=== PATIENT | male | born 1970 | race Caucasian/White ===

== ENCOUNTER 2022-07-23 14:02 | Outpatient (CLI) | payer BC, SELFPAY ==
[2022-07-23 22:23] LABS: Creatinine Urine 189.4 mg/dL
[2022-07-23 23:15] LABS: Microalbumin Creatinine Ratio 300 mg/g (0-30); Microalbumin Urine > 57 mg/dL
== END 2022-07-23 14:03 | disposition home or self-care (01) ==
LOC: LKVREF 14:04
PROVIDERS: PCP Family Medicine; Visit Provider Family Medicine
DX: D64.9 Anemia, unspecified (principal); E11.319 Type 2 diabetes mellitus with unspecified diabetic retinopathy without macular edema; E11.9 Type 2 diabetes mellitus without complications; I10 Essential (primary) hypertension
CPT/HCPCS: 82043; 82570

== ENCOUNTER 2022-09-04 10:14 | Outpatient (CLI) | payer BC, SELFPAY | END 2022-09-04 10:15 | disposition home or self-care (01) | LOC: OP CLINIC 10:14 | PROVIDERS: PCP Family Medicine; Visit Provider Surgery | DX: D50.9 Iron deficiency anemia, unspecified (principal); K62.1 Rectal polyp; K57.30 Diverticulosis of large intestine without perforation or abscess without bleeding; K44.9 Diaphragmatic hernia without obstruction or gangrene; K31.89 Other diseases of stomach and duodenum | CPT/HCPCS: 43239; 45380; 45385; 88305; 99153; J2250; J3010 ==

== ENCOUNTER 2022-10-26 14:51 | Outpatient (CLI) | payer BC, OTHER, SELFPAY ==
[2022-10-26 22:18] LABS: Iron* 62 ug/dL (49-181)
[2022-10-26 22:19] LABS: Albumin* 3.4 g/dL (3.3-5.0); Chloride* 110 mmol/L (96-114); Potassium* 4.4 mmol/L (3.6-5.1); Sodium* 140 mmol/L (135-149)
[2022-10-26 22:21] LABS: Creatinine* 3.9 mg/dL (0.5-1.5); Estimated Glomerular Filt Rate 17 ml/min
[2022-10-26 22:22] LABS: Cholesterol* 320 mg/dL (90-199)
[2022-10-26 22:22] LABS: Blood Urea Nitrogen* 67 mg/dL (7-30); Carbon Dioxide* 21 mmol/L (20-32); Glucose* 114 mg/dL (60-115); Phosphorus* 5.7 mg/dL (2.5-4.5)
[2022-10-26 22:23] LABS: HDL Cholesterol* 45 mg/dL (>=40); LDL Cholesterol Calculated 210 mg/dL (<100); Triglycerides* 325 mg/dL (40-149)
[2022-10-26 22:27] LABS: Percent Iron Saturation 23 % (20-50); Total Iron Binding Capacity 273 ug/dL (261-462)
[2022-10-26 23:09] LABS: Vitamin B12* 642 pg/mL (243-894)
[2022-10-28 20:52] LABS: Folate, Serum 12.4 ng/mL (>=5.9)
== END 2022-10-26 14:52 | disposition home or self-care (01) ==
PROVIDERS: PCP Family Medicine; Visit Provider Internal Medicine Nephrology
DX: D64.9 Anemia, unspecified (principal); I10 Essential (primary) hypertension; N18.30 Chronic kidney disease, stage 3 unspecified; E11.9 Type 2 diabetes mellitus without complications
CPT/HCPCS: 80061; 80069; 82607; 82728; 82746; 83540; 83550

== ENCOUNTER 2022-12-07 16:21 | Outpatient (CLI) | payer BC, OTHER, SELFPAY | END 2022-12-07 16:22 | disposition home or self-care (01) | PROVIDERS: PCP Family Medicine; Visit Provider Family Medicine | DX: E11.9 Type 2 diabetes mellitus without complications (principal); I10 Essential (primary) hypertension; N18.30 Chronic kidney disease, stage 3 unspecified; D64.9 Anemia, unspecified | CPT/HCPCS: 80048; 82310; 82607; 82668; 82728; 82747; 83970; 84100; 85045 ==

== ENCOUNTER 2023-01-11 15:38 | Outpatient (CLI) | payer BC, SELFPAY ==
--- NOTE | 2023-01-28 13:05 | ONC.NURNOTE ---
Dr. Perla notified of the following via email. [employer] to let office know as well. [facility] denied this for patient, stating the following: This request has been denied.? Your doctor ordered a medicine.? This is to treat your condition (anemia).? We reviewed the chart notes sent in.? Your policy follows expert drug guidelines.? The requested dose is higher than recommended.? This is why this request has been denied.? It is denied as not medically necessary.? It does not meet the standards of your policy.? It is not approved. I will disregard this order and watch for your plan.
== END 2023-01-11 15:39 | disposition home or self-care (01) ==
PROVIDERS: PCP Family Medicine; Visit Provider Family Medicine
DX: Z00.00 Encounter for general adult medical examination without abnormal findings (principal); I10 Essential (primary) hypertension; R93.89 Abnormal findings on diagnostic imaging of other specified body structures; D64.9 Anemia, unspecified; E11.319 Type 2 diabetes mellitus with unspecified diabetic retinopathy without macular edema; N18.30 Chronic kidney disease, stage 3 unspecified
CPT/HCPCS: 80048; 83735; 84100

== ENCOUNTER 2023-04-08 11:00 | Outpatient (RCR) | payer BC, SELFPAY ==
--- NOTE | 2023-02-06 09:50 | PC.NURSE ---
Called pt today as his aranesp is not approved with insurance. Cancelled appointment. Will call pt to schedule after medication is approved.
--- NOTE | 2023-02-07 09:31 | URNOTE ---
Request received for authorization for Minh ([id number]). Prior authorization is approved from 02/07/23 to 02/08/24 by [facility], case# [id number].
--- NOTE | 2023-02-08 09:30 | URNOTE ---
Per Kelly at [employer] ([phone]), it is ok to give 40mcg every 30 days. Call ref #[id number]
[2023-02-08 10:38] LABS: Basophils Absolute Auto 0.04 K/uL (0.00-0.30); Basophils Percent Auto 0.8 % (0.0-3.0); Eosinophils Absolute Auto 0.26 K/uL (0.00-0.50); Hematocrit 28.5 % (37.0-53.0); Hemoglobin* 9.5 gm/dL (13.5-17.5); Immature Granulocytes Abs Auto 0.05 K/uL (0.00-0.30); Lymphocytes Absolute Auto 1.04 K/uL (0.90-2.90); Lymphocytes Percent Auto 20.2 % (20-44); Mean Corpuscular HGB Conc 33 gm/dL (32-36); Mean Corpuscular Hemoglobin 29 pg (26-34); Mean Corpuscular Volume 87 fL (80-100); Monocytes Percent Auto 8.1 % (0.0-11.0); Neutrophils Absolute Auto 3.35 K/uL (1.7-7.0); Neutrophils Percent Auto 64.9 % (42.0-72.0); Platelet Count* 174 K/uL (140-440); RDW Coefficient of Variation % 12.6 % (11.5-15.5); Red Blood Count 3.28 m/uL (4.30-5.90); White Blood Count* 5.16 K/uL (4.50-11.00)
[2023-02-08 10:41] LABS: Slide Review Reflex No
[2023-02-08 10:50] VITALS: BP 162/73; PULSE 66; RESP 16; TEMP 36.4; O2SAT 100
[2023-02-08] MEDS: [UNRECOGNIZED DRUG - REMARK] SUBCUT (11:13)
[2023-03-11 15:50] VITALS: BP 172/81; PULSE 67; RESP 16; TEMP 36.5; O2SAT 98
[2023-03-11] MEDS: [UNRECOGNIZED DRUG - REMARK] SUBCUT (15:57)
[2023-04-08 10:50] VITALS: BP 176/85; PULSE 61; RESP 16; TEMP 36.1; O2SAT 99
[2023-04-08 11:11] LABS: Basophils Absolute Auto 0.02 K/uL (0.00-0.30); Basophils Percent Auto 0.4 % (0.0-3.0); Eosinophils Absolute Auto 0.19 K/uL (0.00-0.50); Eosinophils Percent Auto 3.8 % (0.0-7.0); Hematocrit 30.3 % (37.0-53.0); Hemoglobin* 10.1 gm/dL (13.5-17.5); Immature Granulocytes Abs Auto 0.01 K/uL (0.00-0.30); Immature Granulocytes Pct Auto 0.2 %; Lymphocytes Percent Auto 12.5 % (20-44); Mean Corpuscular HGB Conc 33 gm/dL (32-36); Mean Corpuscular Hemoglobin 29 pg (26-34); Mean Corpuscular Volume 87 fL (80-100); Monocytes Percent Auto 8.2 % (0.0-11.0); Neutrophils Percent Auto 74.9 % (42.0-72.0); Platelet Count* 188 K/uL (140-440); RDW Coefficient of Variation % 13.3 % (11.5-15.5); Red Blood Count 3.49 m/uL (4.30-5.90); Slide Review Reflex No; White Blood Count* 4.97 K/uL (4.50-11.00)
[2023-04-08] MEDS: [UNRECOGNIZED DRUG - REMARK] SUBCUT (11:34)
== END 2023-08-07 23:59 | disposition home or self-care (01) ==
LOC: CCIC 11:00
PROVIDERS: PCP Family Medicine; Referring Provider Family Medicine; Visit Provider Family Medicine
DX: N18.4 Chronic kidney disease, stage 4 (severe) (principal); D64.9 Anemia, unspecified
CPT/HCPCS: 36415; 85025; 96372; J0881

== ENCOUNTER 2023-04-29 14:52 | Outpatient (CLI) | payer BC, SELFPAY | END 2023-04-29 14:53 | disposition home or self-care (01) | LOC: NFLDREF 04-30 08:38 | PROVIDERS: PCP Family Medicine; Referring Provider Family Medicine; Visit Provider Family Medicine | DX: I10 Essential (primary) hypertension (principal); E13.9 Other specified diabetes mellitus without complications; N18.4 Chronic kidney disease, stage 4 (severe); E11.9 Type 2 diabetes mellitus without complications; D64.9 Anemia, unspecified; E78.00 Pure hypercholesterolemia, unspecified | CPT/HCPCS: 80069; 80076; 82728; 83540; 83550; 84550 ==

== ENCOUNTER 2023-07-29 14:50 | Outpatient (CLI) | payer BC, SELFPAY | END 2023-07-29 14:51 | disposition home or self-care (01) | LOC: NFLDREF 08-01 15:32 | PROVIDERS: PCP Family Medicine; Referring Provider Family Medicine; Visit Provider Internal Medicine Nephrology | DX: E11.22 Type 2 diabetes mellitus with diabetic chronic kidney disease (principal); N18.4 Chronic kidney disease, stage 4 (severe); I10 Essential (primary) hypertension; D64.9 Anemia, unspecified | CPT/HCPCS: 80069; 82043; 82570; 82728; 83540; 83550; 84550 ==

== ENCOUNTER 2023-11-01 11:00 | Outpatient (RCR) | payer BC, SELFPAY ==
[2023-05-10 11:12] VITALS: BP 159/89; PULSE 76; RESP 18; TEMP 36.8; O2SAT 100
[2023-05-10 11:47] LABS: Hemoglobin* 9.2 gm/dL (13.5-17.5)
--- NOTE | 2023-05-10 12:08 | ONC.NURNOTE ---
Patient not aware of specific medications that he is taking, he will bring medications with him when he comes.
[2023-05-10] MEDS: [UNRECOGNIZED DRUG - REMARK] SUBCUT (12:26)
[2023-06-07 11:05] LABS: Basophils Absolute Auto 0.03 K/uL (0.00-0.30); Basophils Percent Auto 0.6 % (0.0-3.0); Eosinophils Percent Auto 7.1 % (0.0-7.0); Hematocrit 30.7 % (37.0-53.0); Hemoglobin* 9.9 gm/dL (13.5-17.5); Immature Granulocytes Abs Auto 0.01 K/uL (0.00-0.30); Immature Granulocytes Pct Auto 0.2 %; Mean Corpuscular HGB Conc 32 gm/dL (32-36); Mean Corpuscular Hemoglobin 28 pg (26-34); Mean Corpuscular Volume 88 fL (80-100); Monocytes Percent Auto 7.5 % (0.0-11.0); Neutrophils Absolute Auto 3.53 K/uL (1.7-7.0); Neutrophils Percent Auto 69.6 % (42.0-72.0); Platelet Count* 195 K/uL (140-440); Red Blood Count 3.48 m/uL (4.30-5.90); White Blood Count* 5.07 K/uL (4.50-11.00)
[2023-06-07 11:06] LABS: Slide Review Reflex No
[2023-06-07 11:29] VITALS: BP 183/88; PULSE 66; RESP 18; TEMP 36.6; O2SAT 99
[2023-06-07] MEDS: [UNRECOGNIZED DRUG - REMARK] SUBCUT (12:12)
--- NOTE | 2023-06-07 12:23 | ONC.NURNOTE ---
BP high today. 183/88. Pt states he occasionally checks BP at home and it is elevated at home too. [employer] called and spoke to Dr. Edmond (nephrology alliance consultant), per Dr. Mayito franco to give Aranesp since his BP has always been elevated and this is not something new. She did recommend having pt check his blood pressure at home daily and record BP readings for one week. Pt verbalized understanding of this and will record BP readings daily and bring them to his appt with Dr. Perla on 06/11/23.
[2023-07-05 11:07] LABS: Basophils Absolute Auto 0.05 K/uL (0.00-0.30); Basophils Percent Auto 0.8 % (0.0-3.0); Eosinophils Percent Auto 8.6 % (0.0-7.0); Hematocrit 26.3 % (37.0-53.0); Hemoglobin* 8.8 gm/dL (13.5-17.5); Immature Granulocytes Abs Auto 0.01 K/uL (0.00-0.30); Immature Granulocytes Pct Auto 0.2 %; Lymphocytes Percent Auto 11.2 % (20-44); Mean Corpuscular HGB Conc 34 gm/dL (32-36); Mean Corpuscular Hemoglobin 29 pg (26-34); Mean Corpuscular Volume 86 fL (80-100); Monocytes Percent Auto 6.6 % (0.0-11.0); Neutrophils Percent Auto 72.6 % (42.0-72.0); Platelet Count* 216 K/uL (140-440); RDW Coefficient of Variation % 13.2 % (11.5-15.5); Red Blood Count 3.06 m/uL (4.30-5.90); White Blood Count* 6.06 K/uL (4.50-11.00)
[2023-07-05 11:21] VITALS: BP 167/84; PULSE 79; RESP 16; TEMP 36.4; O2SAT 99
[2023-07-05 11:25] LABS: Slide Review Reflex No
[2023-07-05] MEDS: [UNRECOGNIZED DRUG - REMARK] SUBCUT (11:41)
[2023-08-02 10:21] VITALS: BP 142/72; PULSE 96; RESP 16; TEMP 36.6; O2SAT 99
[2023-08-02] MEDS: [UNRECOGNIZED DRUG - REMARK] SUBCUT (10:45)
--- NOTE | 2023-09-04 14:29 | URNOTE ---
Request received for authorization forJuancarlos ([id number]). Prior authorization is approved per [facility] Rep. Katherine Wilkinson approved for 12 doses date range: 08/30/23 to 08/30/24.
[2023-09-05 11:08] LABS: Basophils Absolute Auto 0.03 K/uL (0.00-0.30); Basophils Percent Auto 0.5 % (0.0-3.0); Eosinophils Absolute Auto 0.21 K/uL (0.00-0.50); Eosinophils Percent Auto 3.7 % (0.0-7.0); Hematocrit 27.3 % (37.0-53.0); Hemoglobin* 8.9 gm/dL (13.5-17.5); Lymphocytes Percent Auto 19.1 % (20-44); Mean Corpuscular HGB Conc 33 gm/dL (32-36); Mean Corpuscular Hemoglobin 29 pg (26-34); Mean Corpuscular Volume 88 fL (80-100); Monocytes Percent Auto 7.2 % (0.0-11.0); Neutrophils Absolute Auto 3.98 K/uL (1.7-7.0); Neutrophils Percent Auto 69.5 % (42.0-72.0); Platelet Count* 194 K/uL (140-440); RDW Coefficient of Variation % 13.7 % (11.5-15.5); Red Blood Count 3.12 m/uL (4.30-5.90); White Blood Count* 5.72 K/uL (4.50-11.00)
[2023-09-05 11:21] LABS: Slide Review Reflex No
[2023-09-05] MEDS: DARBEPOETIN ALFA (NON DIALYSIS) 100 MCG SUBCUT (12:15)
[2023-10-04 11:05] LABS: Basophils Absolute Auto 0.03 K/uL (0.00-0.30); Basophils Percent Auto 0.6 % (0.0-3.0); Eosinophils Absolute Auto 0.24 K/uL (0.00-0.50); Eosinophils Percent Auto 4.4 % (0.0-7.0); Hematocrit 27.5 % (37.0-53.0); Hemoglobin* 9.2 gm/dL (13.5-17.5); Lymphocytes Percent Auto 17.4 % (20-44); Mean Corpuscular HGB Conc 34 gm/dL (32-36); Mean Corpuscular Hemoglobin 29 pg (26-34); Mean Corpuscular Volume 87 fL (80-100); Monocytes Percent Auto 8.1 % (0.0-11.0); Neutrophils Absolute Auto 3.75 K/uL (1.7-7.0); Neutrophils Percent Auto 69.5 % (42.0-72.0); Platelet Count* 196 K/uL (140-440); RDW Coefficient of Variation % 13.7 % (11.5-15.5); Red Blood Count 3.18 m/uL (4.30-5.90)
[2023-10-04 11:13] LABS: Slide Review Reflex No
[2023-10-04 11:25] VITALS: BP 136/67; PULSE 85; RESP 16; TEMP 36.3; O2SAT 99
[2023-10-04] MEDS: DARBEPOETIN ALFA (NON DIALYSIS) 100 MCG SUBCUT (11:46)
[2023-11-01 10:52] VITALS: BP 154/78; PULSE 83; RESP 16; TEMP 36.2; O2SAT 98
[2023-11-01] MEDS: DARBEPOETIN ALFA (NON DIALYSIS) 100 MCG SUBCUT (10:58)
== END 2023-11-06 23:59 | disposition home or self-care (01) ==
LOC: CCIC 11:00
PROVIDERS: Internal Medicine Nephrology; PCP Family Medicine; Referring Provider Family Medicine; Visit Provider Family Medicine
DX: N18.4 Chronic kidney disease, stage 4 (severe) (principal); D64.9 Anemia, unspecified
CPT/HCPCS: 36415; 85018; 85025; 96372; J0881

== ENCOUNTER 2024-04-03 10:00 | Outpatient (RCR) | payer BC, SELFPAY ==
[2023-11-29 11:00] VITALS: BP 163/83; PULSE 82; RESP 18; TEMP 36.6; O2SAT 97
[2023-11-29 11:14] LABS: Basophils Absolute Auto 0.04 K/uL (0.00-0.30); Basophils Percent Auto 0.8 % (0.0-3.0); Eosinophils Absolute Auto 0.32 K/uL (0.00-0.50); Hematocrit 30.4 % (37.0-53.0); Immature Granulocytes Abs Auto 0.01 K/uL (0.00-0.30); Immature Granulocytes Pct Auto 0.2 %; Lymphocytes Percent Auto 13.6 % (20-44); Mean Corpuscular HGB Conc 33 gm/dL (32-36); Mean Corpuscular Hemoglobin 28 pg (26-34); Mean Corpuscular Volume 85 fL (80-100); Monocytes Percent Auto 5.5 % (0.0-11.0); Neutrophils Percent Auto 73.9 % (42.0-72.0); Platelet Count* 189 K/uL (140-440); Red Blood Count 3.57 m/uL (4.30-5.90); White Blood Count* 5.31 K/uL (4.50-11.00)
[2023-11-29 11:16] LABS: Slide Review Reflex No
[2023-11-29] MEDS: DARBEPOETIN ALFA (NON DIALYSIS) 100 MCG SUBCUT (11:31)
[2023-12-27 10:32] VITALS: BP 147/77; PULSE 85; RESP 16; TEMP 36.7; O2SAT 98
[2023-12-27 11:19] LABS: Basophils Absolute Auto 0.03 K/uL (0.00-0.30); Basophils Percent Auto 0.5 % (0.0-3.0); Eosinophils Percent Auto 5.4 % (0.0-7.0); Hematocrit 28.2 % (37.0-53.0); Hemoglobin* 9.4 gm/dL (13.5-17.5); Immature Granulocytes Abs Auto 0.01 K/uL (0.00-0.30); Immature Granulocytes Pct Auto 0.2 %; Lymphocytes Absolute Auto 1.15 K/uL (0.90-2.90); Lymphocytes Percent Auto 20.6 % (20-44); Mean Corpuscular HGB Conc 33 gm/dL (32-36); Mean Corpuscular Hemoglobin 28 pg (26-34); Mean Corpuscular Volume 85 fL (80-100); Monocytes Percent Auto 9.1 % (0.0-11.0); Neutrophils Absolute Auto 3.59 K/uL (1.7-7.0); Neutrophils Percent Auto 64.2 % (42.0-72.0); Platelet Count* 262 K/uL (140-440); RDW Coefficient of Variation % 13.9 % (11.5-15.5); Red Blood Count 3.31 m/uL (4.30-5.90); White Blood Count* 5.59 K/uL (4.50-11.00)
[2023-12-27 11:21] LABS: Slide Review Reflex No
[2023-12-27] MEDS: DARBEPOETIN ALFA (NON DIALYSIS) 100 MCG SUBCUT (11:50)
--- NOTE | 2024-01-24 15:52 | ONC.NURNOTE ---
Pt did not show up for appt, left message for pt to call and reschedule.
[2024-01-27 11:00] VITALS: BP 223/103; PULSE 74; RESP 16; O2SAT 100
[2024-01-27 11:11] LABS: Basophils Absolute Auto 0.04 K/uL (0.00-0.30); Basophils Percent Auto 0.7 % (0.0-3.0); Eosinophils Absolute Auto 0.24 K/uL (0.00-0.50); Eosinophils Percent Auto 4.1 % (0.0-7.0); Hematocrit 31.2 % (37.0-53.0); Hemoglobin* 10.1 gm/dL (13.5-17.5); Immature Granulocytes Abs Auto 0.01 K/uL (0.00-0.30); Immature Granulocytes Pct Auto 0.2 %; Lymphocytes Percent Auto 17.1 % (20-44); Mean Corpuscular HGB Conc 32 gm/dL (32-36); Mean Corpuscular Hemoglobin 28 pg (26-34); Mean Corpuscular Volume 86 fL (80-100); Monocytes Percent Auto 5.9 % (0.0-11.0); Neutrophils Absolute Auto 4.18 K/uL (1.7-7.0); Platelet Count* 181 K/uL (140-440); RDW Coefficient of Variation % 14.4 % (11.5-15.5); Red Blood Count 3.61 m/uL (4.30-5.90)
[2024-01-27 11:12] LABS: Slide Review Reflex No
[2024-01-27 11:20] VITALS: BP 217/102
[2024-01-27] MEDS: ISOSORBIDE MONONITRATE ER 30 MG TAB 60 MG PO (11:32)
[2024-01-27 12:35] VITALS: BP 224/112
[2024-01-27 12:38] VITALS: BP 218/102
--- NOTE | 2024-01-27 12:39 | PC.NURSE ---
Addendum entered by Teri Minaya RN 01/27/24 12:47: Spoke with Dr. Perla's nurse and updated her on pt' BP situation from today. She will discuss with . Again, pt was also instructed to call and report his elevated BP. Original Note: Pt present at [facility] for labs and aranesp injection. Pt BP upon arrival was significantly elevated. See Vitals Worklist for details. Per pt report he is out of his Imdur but has taken his other BP meds (hydralazine, amlodipine, HCTZ). RN discussed case with Leeanne Badillo APRN. Gave pt an oral dose of Imdur from our pharmacy. Pt returned to [facility] 1 hour later and BP continues to be very high (210-220/110-120). Pt has no symptoms at this time. Hieu will picker packer his prescription of Imdur tomorrow. Hieu was instructed to call Dr. Perla with this update so BP can be monitored and meds can be adjusted if needed. Aranesp HELD today. Pt will return next week for an injection if BP better controlled.
[2024-01-31 11:00] VITALS: BP 178/92; PULSE 79; RESP 16; TEMP 36.3; O2SAT 98
[2024-01-31] MEDS: DARBEPOETIN ALFA (NON DIALYSIS) 100 MCG SUBCUT (11:27)
--- NOTE | 2024-01-31 11:59 | PC.NURSE ---
Pt present at [facility] today for BP re-check and possible Aranesp injection. BP still elevated 170-180/90's. Leeanne Badillo APRN emailed Dr. Perla for treatment parameters. advised OK to give Aranesp if SBP <200. Dose given today. Spoke with Dr. Perla's RN re: BP management. She will work with Dr. Perla and call pt directly to discuss changes to meds.
[2024-02-28 09:16] LABS: Basophils Absolute Auto 0.04 K/uL (0.00-0.30); Basophils Percent Auto 0.5 % (0.0-3.0); Eosinophils Absolute Auto 0.33 K/uL (0.00-0.50); Eosinophils Percent Auto 4.4 % (0.0-7.0); Hematocrit 30.3 % (37.0-53.0); Hemoglobin* 9.8 gm/dL (13.5-17.5); Immature Granulocytes Abs Auto 0.01 K/uL (0.00-0.30); Immature Granulocytes Pct Auto 0.1 %; Lymphocytes Percent Auto 17.1 % (20-44); Mean Corpuscular HGB Conc 32 gm/dL (32-36); Mean Corpuscular Hemoglobin 28 pg (26-34); Mean Corpuscular Volume 88 fL (80-100); Monocytes Percent Auto 5.9 % (0.0-11.0); Neutrophils Absolute Auto 5.34 K/uL (1.7-7.0); Platelet Count* 186 K/uL (140-440); RDW Coefficient of Variation % 14.6 % (11.5-15.5); Red Blood Count 3.45 m/uL (4.30-5.90); White Blood Count* 7.43 K/uL (4.50-11.00)
[2024-02-28 09:20] LABS: Slide Review Reflex No
[2024-02-28 09:30] VITALS: BP 147/76; PULSE 67; RESP 14; TEMP 36.6; O2SAT 98
[2024-02-28] MEDS: DARBEPOETIN ALFA (NON DIALYSIS) 100 MCG SUBCUT (09:33)
--- NOTE | 2024-04-03 11:44 | ONC.NURNOTE ---
Patient states he now gets it at Dialysis so no further need to come in
== END 2024-05-27 23:59 | disposition home or self-care (01) ==
LOC: CCIC 10:00
PROVIDERS: PCP Family Medicine; Referring Provider Family Medicine; Visit Provider Clinical Nurse Specialist
DX: N18.4 Chronic kidney disease, stage 4 (severe) (principal); D63.1 Anemia in chronic kidney disease
CPT/HCPCS: 36415; 85025; 96372; 99211; A9270; J0881; J1642

== ENCOUNTER 2024-09-14 10:09 | Outpatient (CLI) | payer MEDICARE, SELFPAY ==
--- OUTSIDE RECORDS SUMMARY | 2024-09-14 10:20 | XMS_ITS ---
Author Organization [facility] Address [address] [place] [address] Care Team Providers Care Press Hand Supervisor Name Role Phone Unavailable Unavailable Unavailable Surgery Details Not on file Complications Check Surgery Details section. Procedure Estimated Blood Loss Check Surgery Details section. Procedure Findings Check Surgery Details section. Procedure Specimens Taken Check Surgery Details section.
--- OUTSIDE RECORDS SUMMARY | 2024-09-14 10:20 | XMS_ITS | Referral Summary ---
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 For routine questions regarding patient records, call [phone] during business hours, M-F 8:00 AM - 5:00 PM Central Time. Record requests for emergency care only can be directed to [phone] at any time.[facility] Encounters Date Type Department Care Team Description 08/26/2024 1:19 PM GROUP EXERCISE CLASS INSTRUCTOR - 08/26/2024 11:59 PM GROUP EXERCISE CLASS INSTRUCTOR Hospital Encounter Department of Laboratory Medicine and Pathology, [facility], in [place], [place] [address] [place] [address] Jovani Willis APRN, C.N.P., M.S.N. Chronic Kidney Disease; Pretransplant Recipient Evaluation Exam Discharge Disposition: Home or Self Care 08/24/2024 [facility] [place], [place] [address] [place] [address] Jovani Willis APRN, C.N.P., M.S.N. Chronic Kidney Disease; Pretransplant Recipient Evaluation Exam 08/04/2024 Orders Only Division of Nephrology and Hypertension in [place], [place] [address] [place] [phone] Mahesh Perla Jr., D.O. 06/26/2024 2:53 PM CDT - 06/26/2024 11:59 PM CDT Hospital Encounter Department of Laboratory Medicine and Pathology, [facility], in [place], [place] [address] [place] [address] Jovani Willis APRN, C.N.P., M.S.N. Chronic Kidney Disease; Pretransplant Recipient Evaluation Exam Discharge Disposition: Home or Self Care 06/26/2024 Orders Only Lamonte [facility] in [place], [place] [address] [place] [address] Jovani Willis APRN, C.N.P., M.S.N. Chronic Kidney Disease; Pretransplant Recipient Evaluation Exam from Last 3 Months Allergies No known active allergies Medications * This document contains information received from the source organization and may not represent a complete record from that organization. acetaminophen (for_TYLENOL) 100 mg/mL solution Take by mouth as needed. [address] Active aspirin [address] tablet Take 1 tablet by mouth daily. 5 Active UNABLE TO FIND 4 (four) times a day. 5 Active lancets misc 4 (four) times a day. 5 Active lancets misc 2 (two) times a day. 6 Active blood sugar diagnostic stripsIndication s:Diabetes Mellitus Type 2 (HCC) 3 test daily. 270 test 3 8 Active blood-glucose meter miscIndications: Diabetes Mellitus Type 2 (HCC) Test as directed for diabetes control. 1 each 8 Active blood glucose ctl high,nml,low solutionIndicati ons:Diabetes Mellitus Type 2 (HCC) Glucose control solution provides an easy way to ensure accurate blood glucose testing. 1 each 8 Active insulin glargine (Lantus Solostar U-100 Insulin) 100 unit/mL (3 mL) injection INJECT 22 UNITS UNDER THE SKIN AT BEDTIME FOR 2 DAYS , THEN 24 UNITS FOR 2 DAYS , THEN 26 UNITS AT BEDTIME 15 mL 1 0 Active Additional Information Patient taking differently: Taking 25 UNITS AT BEDTIME Not taking due to cost, Informant: Self, Reported on 04/16/2024 BD Ultra-Fine Mini Pen Needle 31 gauge x 3/16 needle USE TO INJECT INSULIN SIX TIMES PER DAY 600 each 3 0 Active hydroCHLOROthiaz allan (HYDRODIURIL) 25 mg tablet Take 1 tablet (25 mg total) by mouth daily. 90 tablet 3 2 Active Additional Information Patient taking differently:25 mg oral Daily,At noon, Reported on 12/11/2023 isosorbide mononitrate (IMDUR) 60 mg 24 hr tablet Take 1 tablet (60 mg total) by mouth daily. 90 tablet 3 3 09/15/20 24 Active atorvastatin (LIPITOR) 10 mg tablet Take 1 tablet (10 mg total) by mouth daily. 90 tablet 3 4 02/04/20 25 Active metoprolol succinate (TOPROL-XL) 50 mg 24 hr tablet Take 1 tablet (50 mg total) by mouth daily. Do not crush or chew. 90 tablet 3 4 02/04/20 25 Active amLODIPine (NORVASC) 10 mg tablet Take 1 tablet (10 mg total) by mouth daily. 90 tablet 3 4 02/11/20 25 Active gentamicin (GARAMYCIN) 0.1 % cream APPLY ONCE DAILY TO PD EXIT SITE 4 Active Janet-Gene Rx 1-60-300 mg-mg-mcg tablet Take 1 tablet by mouth daily. 4 Active insulin detemir U-100 (Levemir U-100 Insulin) 100 unit/mL injection Inject 25 Units under the skin at bedtime. Injected daily as directed. 22.5 mL 1 4 04/20/20 25 Active sevelamer carbonate (Renvela) 800 mg tablet Take 2 tablets (1,600 mg total) by mouth 3 (three) times a day with meals. 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 08/14/2022 Anemia Of Chronic Renal Disease 12/05/2021 Hyperparathyroidism Renal Secondary 10/17/2021 Proteinuria 05/24/2020 Chronic Kidney Disease Stage 5 Glomerular Filtration Rate Less Than 15 05/24/2020 Hypertensive Chronic Kidney Disease With Stage 5 Chronic Kidney Disease Or End Stage Renal Disease 05/24/2020 Elevated Blood Pressure 12/19/2018 Goiter 12/19/2018 Pain Right Upper Quadrant 04/08/2018 Hyperlipidemia 08/04/2010 Diabetes Mellitus Type 2 07/28/2010 Overview (02/26/2017): Diabetes mellitus without mention of complication, type II or unspecified type, uncontrolled Resolved Problems Problem Noted Date Diagnosed Date Resolved Date Anemia 05/27/2018 12/19/2018 Gallstone Without Obstruction 04/18/2018 12/19/2018 Immunizations Name Administration Dates Next Due Influenza, Injectable, Quadrivalent 08/26/2015 Influenza, Seasonal, Injectable 10/13/2012 Influenza, Unspecified 08/26/2015,2013,08/28/2013,2012,08/10/2011,07/03/2010,08/19/2007 PPSV23 02/09/2011,05/14/2005 RZV (SHINGRIX) 12/30/2023,04/22/2020 Td Preservative Free (TENIVA C, DECAVAC) 04/27/2005 Tdap 11/19/2022,01/16/2013 influenza trivalent vaccine (6 months and older)(PF) 07/27/2008 influenza vaccine quad (FLUZONE/FLUARIX) (6 months and older)(PF) 07/23/2022 Social History Tobacco Use Types Packs/Day Years Used Date Smoking Tobacco: Never Passive Smoke Exposure: Never Smokeless Tobacco: Never Tobacco Cessation:Counseling Given: Not Answered Alcohol Use Standard Drinks/Week Comments Not Currently 13 (1 standard drink = 0.6 oz pure alcohol) one some days, 6 on weekends [facility] Utilities Answer Date Recorded In the past 12 months has th e [employer], gas, oil, or water [email or web address] threatened to shut off services in your home? Yes 04/16/2024 PHQ-2 Answer Date Recorded PHQ-2 Score 1 04/16/2024 Exercise Vital Sign Answer Date Recorde d On average, how many days pe r week do you engage in moderate to strenuous exercise (like a brisk walk)? Patient declined On average, how many minutes do you engage in exercise at this level? Patient declined 04/16/2024 Hunger Vital Sign Answer Date Recorded Within the past 12 months, y ou worried that your food would run out before you got the money to buy more. Sometimes true Within the past 12 months, t he food you bought just didn't last and you didn't have money to get more. Sometimes true 08/2024 PRAPARE - Transportation Answer Date Re corded In the past 12 months, has l ack of transportation kept you from medical appointments or from getting medications? No 04/06 In the past 12 months, has l ack of transportation kept you from meetings, work, or from getting things needed for daily living? No 04/16/2024 Nutrition Answer Date Recorded On average, how many serving s of fruits and vegetables do you eat per day (serving size is equal to 1 cup or approximately the size of a tennis ball)? 0-2 04/16/2024 Dental Answer Date Recorded Dental: Regular Dentist Yes 04/16/20 Employment Answer Date Recorded Employment status Temporarily disabled Housing Stability Answer Date Recorded What is your living situation today? 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 Not on file Not on file Not on file Last Filed Vital Signs Vital Sign Reading Time Taken Comments Blood Pressure 137/75 04/16/2024 1:37 PM CDT Pulse 63 04/16/2024 1:37 PM CDT Temperature 36.7 C (98.1 F) 04/16/2024 1:37 PM CDT Respiratory Rate 11 02/13/2024 2:00 PM CDT Oxygen Saturation 98% 02/13/2024 2:00 PM CDT Inhaled Oxygen Concentration - - Weight 67.4 kg (148 lb 9.4 oz) 05/28/2024 9:26 A M CDT Height 155.4 cm (5' 1.18) 05/28/2024 9:26 AM CD T Body Mass Index 27.91 05/28/2024 9:26 AM CDT Plan of Treatment Not on file Procedures Procedure Name Priority Date/Time Associated Diagnosis Comments HLA CLASS I SAB ANTIBODY SCREEN Routine 09/09/2024 1:30 PM GROUP EXERCISE CLASS INSTRUCTOR Chronic Kidney Disease Pretransplant Recipient Evaluation Exam HLA CLASS I/II COMBINED CPRA, SERUM Routine 07/22/2024 11:00 AM CDT HLA CLASS II SAB ANTIBODY SCREEN Routine 07/22/2024 11:00 AM CDT Chronic Kidney Disease Pretransplant Recipient Evaluation Exam HLA CLASS I SAB ANTIBODY SCREEN Routine 07/22/2024 11:00 AM CDT Chronic Kidney Disease Pretransplant Recipient Evaluation Exam HEMOGLOBIN A1C, B Routine 04/16/2024 2:4 8 PM CDT Diabetes Mellitus Type 2 With 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 (HCC) BASIC METABOLIC PANEL, S/P Routine 04/16/2024 2:48 PM CDT Diabetes Mellitus Type 2 With 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 (HCC) ALBUMIN, RANDOM, U Routine 12/09/2023 7: 22 AM GROUP EXERCISE CLASS INSTRUCTOR Chronic Kidney Disease Stage 4 Glomerular Filtration Rate 15-29 (HCC) Hypertension And Chronic Kidney Disease Stage 4 (HCC) Diabetes Mellitus Type 2 (HCC) Hyperparathyroidism Renal Secondary (HCC) Anemia Of Chronic Renal Disease LIPID PANEL, S Routine 12/09/2023 7:08 AM GROUP EXERCISE CLASS INSTRUCTOR Diabetes Mellitus Type 2 (HCC) Chronic Kidney Disease Stage 5 Glomerular Filtration Rate Less Than 15 (HCC) Pretransplant Recipient Evaluation Exam HIV-1/-2 AG AND AB SCREEN, PLASMA Routine 12/09/2023 7:07 AM GROUP EXERCISE CLASS INSTRUCTOR Diabetes Mellitus Type 2 (HCC) Chronic Kidney Disease Stage 5 Glomerular Filtration Rate Less Than 15 (HCC) Pretransplant Recipient Evaluation Exam COLOGUARD Routine 11/18/2023 10:53 AM GROUP EXERCISE CLASS INSTRUCTOR Diabetes Mellitus Type 2 (HCC) Chronic Kidney Disease Stage 5 Glomerular Filtration Rate Less Than 15 (HCC) Pretransplant Recipient Evaluation Exam from Last 3 Months or Most Recently Relevant to Health Maintenance Results * HLA Class I SAB Antibody Screen (09/09/2024 1:30 PM GROUP EXERCISE CLASS INSTRUCTOR) Only the most recent of2 resultswithin the time period is included. Class I SAB Overall Result Negative Not Applicable 09/14/2024 10:11 AM GROUP EXERCISE CLASS INSTRUCTOR DBB8 Class I SAB >=5000 MFI NONE 09/14/2024 10:11 AM GROUP EXERCISE CLASS INSTRUCTOR DBB8 Class I SAB [id number] MFI NONE 09/14/2024 10:11 AM GROUP EXERCISE CLASS INSTRUCTOR DBB8 Class I SAB 500-1999 MFI NONE 09/14/2024 10:11 AM GROUP EXERCISE CLASS INSTRUCTOR DBB8 SAB A Specificity NONE 09/14/2024 10:11 AM GROUP EXERCISE CLASS INSTRUCTOR DBB8 SAB B Specificity NONE 09/14/2024 10:11 AM GROUP EXERCISE CLASS INSTRUCTOR DBB8 SAB C Specificity NONE 09/14/2024 10:11 AM GROUP EXERCISE CLASS INSTRUCTOR DBB8 Comment: ----ADDITIONAL INFORMATION---- Method: Luminex Flow Cytometry CLIA: [id number] CLIA [employer] Driver: PROSPER NELSON,Ph.D. Blood (Blood, Venous) 09/09/2024 1:30 PM GROUP EXERCISE CLASS INSTRUCTOR 09/10/2024 11:43 AM GROUP EXERCISE CLASS INSTRUCTOR Jovani Willis APRN, C.N.P., M.S.N. LAB HLA ORD ERABLES Final Result [facility] [address] [place] [address], [facility] DBB8 [facility] [address] [place] [address] * HLA Class I/II Combined cPRA, Serum (07/22/2024 11:00 AM CDT) Class I/II Combined cPRA 0 Not Applicable 07/27/2024 9:28 AM CDT DBB8 Comment: ----ADDITIONAL INFORMATION---- Calculated PRA (cPRA) is the percentage of donors expected to have HLA antigens listed as unacceptable for a candidate on the waiting list. Unacceptable antigens include serologic equivalents that have a normalized Mean Fluorescence Intensity (MFI) >= 2000 and antigens that demonstrate Prozone Phenomenon. The cPRA is calculated based on the HLA frequencies published by UNOS/OPTN listed here: http://optn.transplant.[facility].gov CLIA: [id number] CLIA [employer] Driver: PROSPER NELSON,Ph.D. Combined cPRA Specificities NONE 07/27/2024 9:28 AM CDT DBB8 Blood 07/22/2024 11:0 0 AM CDT 07/23/2024 12:52 PM CDT Jovani Willis APRN C.N.P., M.S.N. LAB HLA ORD ERABLES Final Result [facility] [address] [place] [address], [facility] DBB8 [facility] [address] [place] [address] * HLA Class II SAB Antibody Screen (07/22/2024 11:00 AM CDT) [facility] Class II SAB Overall Result Positive Not Applicable 07/26/2024 7:54 PM CDT DBB8 Comment: A portion of the testing process was performed at [facility] site [id number] Class II SAB >=5000 MFI NONE 07/26/2024 7:54 PM CDT DBB8 Class II SAB [id number] MFI NONE 07/26/2024 7:54 PM CDT DBB8 Class II SAB 500-1999 MFI see below 07/26/2024 7:54 PM CDT DBB8 Comment: DRw:53 DP:1 14 SAB DRB1 Specificity NONE 07/26/2024 7:54 PM CDT DBB8 SAB [id number] Specificity see below 07/26/2024 7:54 PM CDT DBB8 Comment: 53(01:01)[853], 53(01:03)[641] Format: Serologic Eq.([id number] Mol. Allele)[Normalized MFI] NOTE: Data is displayed in descending order by Mean Fluorescence Intensity (MFI). Serologic equivalents can be displayed multiple times for different molecular alleles. SAB DQB1 Specificity NONE 07/26/2024 7:54 PM CDT DBB8 SAB DPB1 Specificity see below 07/26/2024 7:54 PM CDT DBB8 Comment: 1(A*02:01;B*01:01)[2175], 14(A*02:01;B*14:01)[1786] Format: Serologic Eq.(DPA1;DPB1 Mol. Allele)[Normalized MFI] NOTE: Data is displayed in descending order by Mean Fluorescence Intensity (MFI). Serologic equivalents can be displayed multiple times for different molecular alleles. ----ADDITIONAL INFORMATION---- Method: Luminex Flow Cytometry CLIA: [id number] CLIA [employer] Driver: PROSPER NELSON,Ph.D. Blood (Blood, Venous) 07/22/2024 11:00 AM CDT 07/23/2024 12:52 PM CDT us Pedro Luis Vincent APRNN.P., M.S.N. LAB HLA ORD ERABLES Final Result [facility] [address] [place] [address], [facility] DBB8 [facility] [address] [place] [address] * (ABNORMAL) Hemoglobin A1c (04/16/2024 2:48 PM CDT) Hemoglobin A1c, B 6.0(H) 4.2 - 5.6 % 04/16/2024 5:20 PM CDT OWAT Comment: Hemoglobin A1c values of 5.7-6.4 percent indicate an increased risk for developing diabetes mellitus. In diabetic patients, HbA1c goals should be discussed with healthcare provider. Blood (Blood, Venous) 04/16/2024 2:48 PM CDT 04/16/2024 5:07 PM CDT us Kathy KwokC. LAB BLOOD ADD-ON Final Res ult [facility] [address] [place] [address], [place] OWAT [facility] [place] [address] [place] [address] * (ABNORMAL) Basic Metabolic Panel (04/16/2024 2:48 PM CDT) Potassium, P 3.8 3.6 - 5.2 mmol/L 04/16/2024 5:25 PM CDT OWAT Sodium, P 143 135 - 145 mmol/L 04/16/2024 5:25 PM CDT OWAT Chloride, P 103 98 - 107 mmol/L 04/16/2024 5:25 PM CDT OWAT Bicarbonate, P 25 22 - 29 mmol/L 04/16/2024 5:25 PM CDT OWAT Anion Gap, P 15 7 - 15 04/16/2024 5:25 PM CDT OWAT BUN (Blood Urea Nitrogen), P 59(H) 8 - 24 mg/dL 04/16/2024 5:25 PM CDT OWAT Creatinine 7.63(H) 0.74 - 1.35 mg/dL 04/16/2024 5:25 PM CDT OWAT Estimated GFR (eGFR) <15(L) >=60 mL/min/BSA 04/16/2024 5:25 PM CDT OWAT Comment: Estimated GFR calculated using the 2020 CKD_EPI creatinine equation. Calcium, Total, P 7.7(L) 8.6 - 10.0 mg/dL 04/16/2024 5:25 PM CDT OWAT Glucose, P 275(H) 70 - 140 mg/dL 04/16/2024 5:25 PM CDT OWAT Blood (Blood, Venous) 04/16/2024 2:48 PM CDT 04/16/2024 5:11 PM CDT us Kathy KwokC. LAB BLOOD ADD-ON Final Res ult [facility] [address] [place] [address], [place] OW[place] [facility] [place] [address] [place] [address] * (ABNORMAL) Albumin, Random, Urine (12/09/2023 7:22 AM GROUP EXERCISE CLASS INSTRUCTOR) Albumin, Random, U 4461.5 mg/L 2023 10:30 AM GROUP EXERCISE CLASS INSTRUCTOR DTL Comment: ----ADDITIONAL INFORMATION---- This test has been modified from the emt dispatcher's instructions. Its performance characteristics were determined by [facility] in a manner consistent with CLIA requirements. This test has not been cleared or approved by the U.S. Food and Drug Administration. Creatinine 125 mg/dL 12/09/2023 8:34 AM GROUP EXERCISE CLASS INSTRUCTOR DTL Albumin/Creatinine Ratio 3569(H) <17 mg/g 12/09/2023 10:30 AM GROUP EXERCISE CLASS INSTRUCTOR DTL Urine (Urine, Voided) 12/09/2023 7:22 AM GROUP EXERCISE CLASS INSTRUCTOR 12/09/2023 8:04 AM GROUP EXERCISE CLASS INSTRUCTOR us Mahesh Perla Jr., D.O. LAB URINE ORDERABLES Final Result [facility] [address] [place] [address], [facility] [address] [place] [address] * (ABNORMAL) Lipid Panel (12/09/2023 7:08 AM GROUP EXERCISE CLASS INSTRUCTOR) Triglycerides 303(H) mg/dL 12/09/2023 8:27 AM GROUP EXERCISE CLASS INSTRUCTOR DTL Comment: ----REFERENCE VALUE---- Normal: <150 mg/dL Borderline High: 150-199 mg/dL High: 200-499 mg/dL Very High: > or =500 mg/dL Cholesterol, Total 319(H) mg/dL 2023 8:27 AM GROUP EXERCISE CLASS INSTRUCTOR DTL Comment: ----REFERENCE VALUE---- Desirable: < 200 mg/dL Borderline High: 200 - 239 mg/dL High: > or = 240 mg/dL Cholesterol, LDL, Calculated 218(H) mg/dL 12/09/2023 8:27 AM GROUP EXERCISE CLASS INSTRUCTOR DTL Comment: The markedly elevated LDL level is suggestive of a genetic condition such as familial hypercholesterolemia (FH) or familial defective apolipoprotein B-100 (FDB). Molecular genetic testing for FH and FDB is available through [facility]. ----REFERENCE VALUE---- Desirable: <100 mg/dL Above Desirable: 100-129 mg/dL Borderline High: 130-159 mg/dL High: 160-189 mg/dL Very High: >=190 mg/dL ----ADDITIONAL INFORMATION---- LDL cholesterol calculated using the Corona/NIH equation. Cholesterol, HDL, S 38(L) >=40 mg/dL 12/09/2023 8:27 AM GROUP EXERCISE CLASS INSTRUCTOR DTL Cholesterol, Non-HDL, Calculated 281(H) mg/dL 12/09/2023 8:27 AM GROUP EXERCISE CLASS INSTRUCTOR DTL Comment: ----REFERENCE VALUE---- Desirable: <130 mg/dL Above Desirable: 130-159 mg/dL Borderline High: 160-189 mg/dL High: 190-219 mg/dL Very High: > or =220 mg/dL Fasting (8 HR or more) Yes 12/09/2023 7:47 AM GROUP EXERCISE CLASS INSTRUCTOR DTL Blood (Blood, Venous) 12/09/2023 7:08 AM GROUP EXERCISE CLASS INSTRUCTOR 12/09/2023 7:47 AM GROUP EXERCISE CLASS INSTRUCTOR us Jackson Cade M.D. LAB BLOOD ADD-ON Final Resul t [facility] [address] [place] [address], [facility] [address] [place] [address] * HIV-1/-2 Ag and Ab Screen, Plasma (12/09/2023 7:07 AM GROUP EXERCISE CLASS INSTRUCTOR) [facility] HIV-1/-2 Ag and Ab Screen, P Negative Negative 12/09/2023 11:36 AM GROUP EXERCISE CLASS INSTRUCTOR [facility] Comment: Negative result does not rule out HIV infection. If exposure to HIV infection occurred <14 days ago, contact the laboratory to request addition of HIV-1/HIV-2 RNA detection, Plasma (HIP12). Blood (Blood, Venous) 12/09/2023 7:07 AM GROUP EXERCISE CLASS INSTRUCTOR 12/09/2023 10:42 AM GROUP EXERCISE CLASS INSTRUCTOR us Jackson Cade M.D. LAB MICROBIOLOGY - BLOOD ORD ERABLES Final Result [facility] [address] [place] [address] [facility] [address] [place] [address] * Cologuard - Sent Out Lab (11/18/2023 10:53 AM GROUP EXERCISE CLASS INSTRUCTOR) [facility] Signature Result Negative Negative 11/28/2023 7:54 PM GROUP EXERCISE CLASS INSTRUCTOR EXLI Comment: NEGATIVE TEST RESULT. A negative Cologuard result indicates a low likelihood that a colorectal cancer (CRC) or advanced adenoma (adenomatous polyps with more advanced pre-malignant features) is present. The chance that a person with a negative Cologuard test has a colorectal cancer is less than 1 in 1500 (negative predictive value >99.9%) or has an advanced adenoma is less than 5.3% (negative predictive value 94.7%). These data are based on a prospective cross-sectional study of 10,000 individuals at average risk for colorectal cancer who were screened with both Cologuard and colonoscopy. (Marbin Cameron al, N Engl J Med 2014;370(14):4688-4876) The normal value (reference range) for this assay is negative. COLOGUARD RE-SCREENING RECOMMENDATION: Periodic colorectal cancer screening is an important part of preventive healthcare for asymptomatic individuals at average risk for colorectal cancer. Following a negative Cologuard result, the [place] [employer] and U.S. Multi-Society Task Force screening guidelines recommend a Cologuard re-screening interval of 3 years. References: [place] [employer] Guideline for Colorectal Cancer Screening: https://www.cancer.org/cancer/mnbzx-nqtfek-twikdp/detection- diagnosis-staging/acs-recommendations.html.; Abhijit JAMESON, Nataliia SHANNON, Melissa NAPIER, Colorectal Cancer Screening: Recommendations for Physicians and Patients from the U.S. Multi-Society Task Force on Colorectal Cancer Screening , Am J Gastroenterology 2017; 112:1209-3117. TEST DESCRIPTION: Composite algorithmic analysis of stool DNA-biomarkers with hemoglobin immunoassay. Quantitative values of individual biomarkers are not reportable and are not associated with individual biomarker result reference ranges. Cologuard is intended for colorectal cancer screening of adults of either sex, 45 years or older, who are at average-risk for colorectal cancer (CRC). Cologuard has been approved for use by the U.S. FDA. The performance of Cologuard was established in a cross sectional study of average-risk adults aged 50-84. Cologuard performance in patients ages 45 to 49 years was estimated by sub-group analysis of near-age groups. Colonoscopies performed for a positive result may find as the most clinically significant lesion: colorectal cancer [4.0%], advanced adenoma (including sessile serrated polyps greater than or equal to 1cm diameter) [20%] or non- advanced adenoma [31%]; or no colorectal neoplasia [45%]. These estimates are derived from a prospective cross-sectional screening study of 10,000 individuals at average risk for colorectal cancer who were screened with both Cologuard and colonoscopy. (Marbin Cameron al, N Engl J Med 2014;370(14):3175-0956.) Cologuard may produce a false negative or false positive result (no colorectal cancer or precancerous polyp present at colonoscopy follow up). A negative Cologuard test result does not guarantee the absence of CRC or advanced adenoma (pre-cancer). The current Cologuard screening interval is every 3 years. ([place] [employer] and U.S. Multi-Society Task Force). Cologuard performance data in a 10,000 patient pivotal study using colonoscopy as the reference method can be accessed at the following location: www.[email or web address]/results. Additional description of the Cologuard test process, warnings and precautions can be found at www.[employer].com. Stool (Stool) 11/18/2023 10: 53 AM GROUP EXERCISE CLASS INSTRUCTOR 11/20/2023 1:37 PM GROUP EXERCISE CLASS INSTRUCTOR us Jackson Cade M.D. LAB BODY FLUIDS AND STOOLS O RDERABLES Final Result [facility] [address] [place] [address] EXLI [facility] [address] [facility], [address] [place] [address] from Last 3 Months or Most Recently Relevant to Health Maintenance Insurance [facility] Care Teams Water Hydrant Installer Relationship Specialty Start Date End Date None Reported, Pcp PCP - General 08/14/24
--- OUTSIDE RECORDS SUMMARY | 2024-09-14 10:20 | XMS_ITS | Clinical Summary ---
Author Organization [facility] Address [address] [place] [id number] Care Team Providers Care System Software Programmer Name Role Phone None Reported, Pcp Primary Care Provider Unavail able Source Comments Patient records contain information from all sites at [facility]. For routine questions regarding patient records, call [phone] during business hours, M-F 8:00 AM - 5:00 PM Central Time. Record requests for emergency care only can be directed to [phone] at any time.[facility] Allergies No known active allergies Medications * [...] 05/27/2018 12/19/2018 Gallstone Without Obstruction 04/18/2018 12/19/2018 Encounters Date Type Department Care Team Description 08/26/2024 1:19 PM DATABASE MANAGEMENT SPECIALIST - 08/26/2024 11:59 PM DATABASE MANAGEMENT SPECIALIST Hospital Encounter Department of Laboratory Medicine and Pathology, [facility] in [place], [place] [address] [place] [address] Jovani Willis APRN, C.N.P., M.S.N. Chronic Kidney Disease; Pretransplant Recipient Evaluation Exam Discharge Disposition: Home or Self Care 08/24/2024 [facility] [place], [place] [address] [place] [address] Jovani Willis APRN, C.N.P., M.S.N. Chronic Kidney Disease; Pretransplant Recipient Evaluation Exam 08/04/2024 Orders Only Division of Nephrology and Hypertension in [place], [place] [address] [place] [address] Mahesh Perla Jr., D.OReba 06/26/2024 2:53 PM CDT - 06/26/2024 11:59 PM CDT Hospital Encounter Department of Laboratory Medicine and Pathology, [facility], in [place], [place] [address] [place] [address] Jovani Willis APRN C.N.P., M.S.N. Chronic Kidney Disease; Pretransplant Recipient Evaluation Exam Discharge Disposition: Home or Self Care 06/26/2024 Orders [facility] in [place], [place] [address] [place] [address] Jovani Willis APRN, C.N.P., M.S.N. Chronic Kidney Disease; Pretransplant Recipient Evaluation Exam from Last 3 Months Immunizations Name Administration Dates Next Due Influenza, Injectable, Quadrivalent 08/26/2015 Influenza, Seasonal, Injectable 10/13/2012 Influenza, Unspecified 08/26/2015,2013,08/28/2013,2012,08/10/2011,07/03/2010,08/19/2007 PPSV23 02/09/2011,05/14/2005 RZV (SHINGRIX) 12/30/2023,04/22/2020 Td Preservative Free (TENIVA C, DECAVAC) 04/27/2005 Tdap 11/19/2022,01/16/2013 influenza trivalent vaccine (6 months and older)(PF) 07/27/2008 influenza vaccine quad (FLUZONE/FLUARIX) (6 months and older)(PF) 07/23/2022 Family History Medical History Relation Name Comments Diabetes Father Cancer Mother Diabetes Mother Diabetes Sister Relation Name Status Comments Father Mother Sister Social History Tobacco Use Types Packs/Day Years Used Date Smoking Tobacco: Never Passive Smoke Exposure: Never Smokeless Tobacco: Never Tobacco Cessation:Counseling Given: Not Answered Alcohol Use Standard Drinks/Week Comments Not Currently 13 (1 standard drink = 0.6 oz pure alcohol) one some days, 6 on weekends [facility] Utilities Answer Date Recorded In the past 12 months has [employer], gas, oil, or water [employer] threatened to shut off services in your [...] Date Recorded Dental: Regular Dentist Yes 04/16/20 24 Employment Answer Date Recorded Employment status Temporarily disabled Housing Stability Answer Date Recorded What is your living situation today? 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 Not on file [...] 05/28/2024 9:26 AM CDT Plan of Treatment Health Maintenance Due Date Last Done Comments CT Colonography 1968 Colonoscopy 1968 FIT 1968 Meningococcal Vaccine (1 - Risk 1-dose series ) 1970 MenB Vaccine (1 of 2 - Patient Seeks Protection) 1984 MMR Vaccines (1 of 2 - Risk 2-dose series) 1986 Hepatitis B Vaccines (1 of 3 - 19+ 3-dose series) 1987 Pneumococcal vaccine (0-64 years) (3 of 3 - PCV) 02/10/2012 02/09/2011, 05/14/2005 Dilated Eye Exam 12/13/2017 12/13/2016, 06/16/2015 Diabetic Office Visit with Foot Exam 08/17/2018 08/17/2017, 02/25/2015 COVID-19 Vaccine ( season) 2024 04/19/2021, 03/22/2021 Influenza Vaccine (#1) 2024 , 08/26/2015, 08/26/2015, Additional history exists Hemoglobin A1C 10/17/2024 04/16/2024, 03/0 01/2024, 01/18/2023, Additional history exists Urine Albumin 12/08/2024 12/09/2023, 12/0 01/2023, 01/18/2023, Additional history exists Creatinine Level (Kidney Function Test) 04/16/2025 04/16/2024, 12/09/2023, 10/28/2023, Additional history exists Office Visit for Blood Pressure Check / Re-check 04/16/2025 04/16/2024 Visit: Chronic Disease, age 18+ 04/16/2025 04/16/2024, 11/19/2022 Diabetes Education 05/28/2025 05/28/2024, 12/23/2015 Cologuard 11/18/2026 11/18/2023, 01/05, 01/09/2019 Colorectal Cancer Screening 11/18/2026 Lipid (Cholesterol) Screening 12/08/2028 12/09/2023, 12/19/2018, 08/16/2017, Additional history exists DTaP,Tdap,and Td Vaccines (3 - Td or Tdap) 11/19/2032 11/19/2022, 01/16/2013, 04/27/2005 HIV Screening Completed 12/09/2023 Zoster Vaccines Completed 12/30/2023, 04/22/2020 Depression Screening (Annual PHQ-2) Completed 04/16/2024, 04/16/2024 IPV Vaccines Aged Out No longer eligi ble based on patient's age to complete this topic Procedures Procedure Name Priority Date/Time Associated Diagnosis Comments HLA CLASS I SAB ANTIBODY SCREEN Routine 09/09/2024 1:30 PM DATABASE MANAGEMENT SPECIALIST Chronic Kidney Disease Pretransplant Recipient Evaluation Exam [...] RANDOM, U Routine 12/09/2023 7: 22 AM DATABASE MANAGEMENT SPECIALIST Chronic Kidney Disease Stage 4 Glomerular Filtration Rate 15-29 (HCC) Hypertension And Chronic Kidney Disease Stage 4 (HCC) Diabetes Mellitus Type 2 (HCC) Hyperparathyroidism Renal Secondary (HCC) Anemia Of Chronic Renal Disease LIPID PANEL, S Routine 12/09/2023 7:08 AM DATABASE MANAGEMENT SPECIALIST Diabetes Mellitus Type 2 (HCC) Chronic Kidney Disease Stage 5 Glomerular Filtration Rate Less Than 15 (HCC) Pretransplant Recipient Evaluation Exam HIV-1/-2 AG AND AB SCREEN, PLASMA Routine 12/09/2023 7:07 AM DATABASE MANAGEMENT SPECIALIST Diabetes Mellitus Type 2 (HCC) Chronic Kidney Disease Stage 5 Glomerular Filtration Rate Less Than 15 (HCC) Pretransplant Recipient Evaluation Exam COLOGUARD Routine 11/18/2023 10:53 AM DATABASE MANAGEMENT SPECIALIST Diabetes Mellitus Type 2 (HCC) Chronic Kidney Disease Stage 5 Glomerular Filtration Rate Less Than 15 (HCC) Pretransplant Recipient Evaluation Exam from Last 3 Months or Most Recently Relevant to Health Maintenance Results * HLA Class I SAB Antibody Screen (09/09/2024 1:30 PM DATABASE MANAGEMENT SPECIALIST) Only the most recent of2 resultswithin the time period is included. Class I SAB Overall Result Negative Not Applicable 09/14/2024 10:11 AM DATABASE MANAGEMENT SPECIALIST DBB8 Class I SAB >=5000 MFI NONE 09/14/2024 10:11 AM DATABASE MANAGEMENT SPECIALIST DBB8 Class I SAB [id number] MFI NONE 09/14/2024 10:11 AM DATABASE MANAGEMENT SPECIALIST DBB8 Class I SAB 500-1999 MFI NONE 09/14/2024 10:11 AM DATABASE MANAGEMENT SPECIALIST DBB8 SAB A Specificity NONE 09/14/2024 10:11 AM DATABASE MANAGEMENT SPECIALIST DBB8 SAB B Specificity NONE 09/14/2024 10:11 AM DATABASE MANAGEMENT SPECIALIST DBB8 SAB C Specificity NONE 09/14/2024 10:11 AM DATABASE MANAGEMENT SPECIALIST DBB8 Comment: ----ADDITIONAL INFORMATION---- Method: Luminex Flow Cytometry CLIA: [id number] CLIA Administrative Support Technician: PROSPER NELSON,Ph.D. Blood (Blood, Venous) 09/09/2024 1:30 PM DATABASE MANAGEMENT SPECIALIST 09/10/2024 11:43 AM DATABASE MANAGEMENT SPECIALIST Jovani Willis APRN, C.N.P., M.S.N. LAB HLA ORD ERABLES Final Result Performing Organization Address City/State/[facility] Co de Phone Number [facility] [address] [place] [address], [facility] DBB8 [facility] [address] [place] [address] * HLA Class I/II Combined cPRA, Serum [...] HLA frequencies published by UNOS/OPTN listed here: http://optn.transplant.hrsa.gov CLIA: [id number] CLIA Administrative Support Technician: PROSPER NELSON,Ph.D. Combined cPRA Specificities NONE 07/27/2024 9:28 AM CDT DBB8 Blood 07/22/2024 11:0 0 AM CDT 07/23/2024 12:52 PM CDT Job Vincent APRN.N.P., M.S.N. LAB HLA ORD ERABLES Final Result Performing Organization Address City/[facility]/ZIP Co de Phone Number [facility] [address] [place] [address], [facility] DBB8 [facility] [address] [place] [address] * HLA Class II SAB Antibody Screen (07/22/2024 11:00 AM CDT) Class II SAB Overall Result Positive Not Applicable 07/26/2024 7:54 PM CDT DBB8 Comment: A portion of the testing process was performed at [facility] Szl site [id number] Class II SAB >=5000 MFI NONE 07/26/2024 7:54 PM CDT DBB8 Class II SAB [id number] MFI NONE 07/26/2024 7:54 PM CDT DBB8 Class II SAB 500-1999 MFI see below 07/26/2024 7:54 PM CDT DBB8 Comment: DRw:53 DP:1 14 SAB DRB1 Specificity NONE 07/26/2024 7:54 PM CDT DBB8 SAB [id number] Specificity see below 07/26/2024 7:54 PM CDT DBB8 Comment: 53(01:01)[853], 53(01:03)[641] Format: Serologic Eq.([id number] Mol. Allele)[Normalized MFI] NOTE: Data is displayed [...] ----ADDITIONAL INFORMATION---- Method: Luminex Flow Cytometry CLIA: [id number] CLIA Administrative Support Technician: PROSPER NELSON,Ph.D. Blood (Blood, Venous) 07/22/2024 11:00 AM CDT 07/23/2024 12:52 PM CDT Jovani Willis APRN C.N.P., M.S.N. LAB HLA ORD ERABLES Final Result [facility] [address] [place] [address], [facility] DBB8 [facility] [address] [place] [address] * (ABNORMAL) Hemoglobin A1c (04/16/2024 2:48 PM CDT) Hemoglobin A1c, B 6.0(H) 4.2 - 5.6 % 04/16/2024 5:20 PM CDT OWAT Comment: Hemoglobin A1c values of 5.7-6.4 percent indicate an increased risk for developing diabetes mellitus. In diabetic patients, HbA1c goals should be discussed with healthcare provider. Blood (Blood, Venous) 04/16/2024 2:48 PM CDT 04/16/2024 5:07 PM CDT us Kathy Morrell P.A.-C. LAB BLOOD ADD-ON Final Res ult [facility] [address] [place] [address], [facility] OWAT [facility] [place] [address] [place] [address] * (ABNORMAL) Basic Metabolic Panel (04/16/2024 2:48 [...] CDT 04/16/2024 5:11 PM CDT us Kathy Morrell P.A.-C. LAB BLOOD ADD-ON Final Res ult Performing Organization Address City/[facility]/ZIP Co de Phone Number [facility] [address] [place] [address], [place] OWAT [facility] in [place] [address] [place] [address] * (ABNORMAL) Albumin, Random, Urine (12/09/2023 7:22 AM DATABASE MANAGEMENT SPECIALIST) Albumin, Random, U 4461.5 mg/L 2023 10:30 AM DATABASE MANAGEMENT SPECIALIST DTL Comment: ----ADDITIONAL INFORMATION---- This test has been modified from the customer account specialist's instructions. Its performance characteristics were determined by [facility] in a manner consistent with CLIA requirements. This test has not been cleared or approved by the U.S. Food and Drug Administration. Creatinine 125 mg/dL 12/09/2023 8:34 AM DATABASE MANAGEMENT SPECIALIST DTL Albumin/Creatinine Ratio 3569(H) <17 mg/g 12/09/2023 10:30 AM DATABASE MANAGEMENT SPECIALIST DTL Urine (Urine, Voided) 12/09/2023 7:22 AM DATABASE MANAGEMENT SPECIALIST 12/09/2023 8:04 AM DATABASE MANAGEMENT SPECIALIST us Mahesh Perla Jr., D.O. LAB URINE ORDERABLES Final Result Performing Organization Address City/[facility]/ZIP Co de Phone Number [facility] [address] [place] [address], [place] [facility] [place] [address] [place] [address] * (ABNORMAL) Lipid Panel (12/09/2023 7:08 AM DATABASE MANAGEMENT SPECIALIST) Triglycerides 303(H) mg/dL 12/09/2023 8:27 AM DATABASE MANAGEMENT SPECIALIST DTL Comment: ----REFERENCE VALUE---- Normal: <150 mg/dL Borderline High: 150-199 mg/dL High: 200-499 mg/dL Very High: > or =500 mg/dL Cholesterol, Total 319(H) mg/dL 2023 8:27 AM DATABASE MANAGEMENT SPECIALIST DTL Comment: ----REFERENCE VALUE---- Desirable: < 200 mg/dL Borderline High: 200 - 239 mg/dL High: > or = 240 mg/dL Cholesterol, LDL, Calculated 218(H) mg/dL 12/09/2023 8:27 AM DATABASE MANAGEMENT SPECIALIST DTL Comment: The markedly elevated LDL level is suggestive of a genetic condition such as familial hypercholesterolemia (FH) or familial defective apolipoprotein B-100 (FDB). Molecular genetic testing for FH and FDB is available through [facility] Szl. ----REFERENCE VALUE---- Desirable: <100 mg/dL Above Desirable: 100-129 mg/dL Borderline High: 130-159 mg/dL High: 160-189 mg/dL Very High: >=190 mg/dL ----ADDITIONAL INFORMATION---- LDL cholesterol calculated using the Corona/NIH equation. Cholesterol, HDL, S 38(L) >=40 mg/dL 12/09/2023 8:27 AM DATABASE MANAGEMENT SPECIALIST DTL Cholesterol, Non-HDL, Calculated 281(H) mg/dL 12/09/2023 8:27 AM DATABASE MANAGEMENT SPECIALIST DTL Comment: ----REFERENCE VALUE---- Desirable: <130 mg/dL Above Desirable: 130-159 mg/dL Borderline High: 160-189 mg/dL High: 190-219 mg/dL Very High: > or =220 mg/dL Fasting (8 HR or more) Yes 12/09/2023 7:47 AM DATABASE MANAGEMENT SPECIALIST DTL Blood (Blood, Venous) 12/09/2023 7:08 AM DATABASE MANAGEMENT SPECIALIST 12/09/2023 7:47 AM DATABASE MANAGEMENT SPECIALIST us Jackson Cade M.D. LAB BLOOD ADD-ON Final Resul t [facility] [address] [place] [address], [place] [facility] [place] [address] [place] [address] * HIV-1/-2 Ag and Ab Screen, Plasma (12/09/2023 7:07 AM DATABASE MANAGEMENT SPECIALIST) HIV-1/-2 Ag and Ab Screen, P Negative Negative 12/09/2023 11:36 AM DATABASE MANAGEMENT SPECIALIST [facility] Comment: Negative result does not rule out HIV infection. If exposure to HIV infection occurred <14 days ago, contact the laboratory to request addition of HIV-1/HIV-2 RNA detection, Plasma (HIP12). Blood (Blood, Venous) 12/09/2023 7:07 AM DATABASE MANAGEMENT SPECIALIST 12/09/2023 10:42 AM DATABASE MANAGEMENT SPECIALIST us Jackson Cade M.D. LAB MICROBIOLOGY - BLOOD ORD ERABLES Final Result [facility] [address] [place] [address] [facility] [address] [place] [address] * Cologuard - Sent Out Lab (11/18/2023 10:53 AM DATABASE MANAGEMENT SPECIALIST) Result Negative Negative 11/28/2023 7:54 PM DATABASE MANAGEMENT SPECIALIST EXLI Comment: NEGATIVE TEST RESULT. A negative [...] (Marbin Cameron al, N Engl J Med 2014;370(14):3090-6463) The normal value (reference range) for this assay is negative. COLOGUARD RE-SCREENING RECOMMENDATION: Periodic colorectal cancer screening is an important part of preventive healthcare for asymptomatic individuals at average risk for colorectal cancer. Following a negative Cologuard result, the [place] [employer] Society and U.S. Multi-Society Task Force screening guidelines recommend a Cologuard re-screening interval of 3 years. References: [place] [employer] Guideline for Colorectal Cancer Screening: https://www.cancer.org/cancer/oigbl-ulwmbg-bxgzwz/detection- diagnosis-staging/acs-recommendations.html.; Abhijit JAMESON, Nataliia SHANNON, Melissa NAPIER, Colorectal Cancer Screening: Recommendations for Physicians and Patients from the U.S. Multi-Society Task Force on Colorectal Cancer Screening , Am J Gastroenterology 2017; 112:9908-5038. TEST DESCRIPTION: Composite algorithmic analysis of stool [...] (Marbin Cameron al, N Engl J Med 2014;370(14):0411-2528.) Cologuard may produce a false negative or false positive result (no colorectal cancer or precancerous polyp present at colonoscopy follow up). A negative Cologuard test result does not guarantee the absence of CRC or advanced adenoma (pre-cancer). The current Cologuard screening interval is every 3 years. ([place] [employer] and U.S. Multi-Society Task Force). Cologuard performance data in a 10,000 patient pivotal study using colonoscopy as the reference method can be accessed at the following location: www.exactlabs.com/results. Additional description of the Cologuard test process, warnings and precautions can be found at www.cologuard.com. Stool (Stool) 11/18/2023 10: 53 AM DATABASE MANAGEMENT SPECIALIST 11/20/2023 1:37 PM DATABASE MANAGEMENT SPECIALIST Jackson Cade M.D. LAB BODY FLUIDS AND STOOLS O RDERABLES Final Result [facility] [address] [place] [address] EXLI [facility] [address] [facility], [address] [place] [address] from Last 3 Months or Most Recently Relevant to Health Maintenance Insurance [facility] Care Teams System Software Programmer Relationship Specialty Start Date End Date None Reported, Pcp PCP - General 08/14/24
--- OUTSIDE RECORDS SUMMARY | 2024-09-14 10:21 | XMS_ITS | Encounter Summary ---
Author Organization [facility] Address [address] [place] [address] Care Team Providers Care Supervisor Beet End Name Role Phone Elsewhere, Pcp Primary Care Provider Unavailabl e Encounter Details Date Type Department Care Team (Latest Contact Info) Description 06/26/2024 2:53 PM CDT - 06/26/2024 11:59 PM CDT Hospital Encounter Department of Laboratory Medicine and Pathology, [place], [place] [address] [place] [phone] Jovani Willis, DANIEL, C.N.P., M.S.N. [address] [place] [phone] Chronic Kidney Disease; Pretransplant Recipient Evaluation Exam Discharge Disposition: Home or Self Care Social History Tobacco Use Types Packs/Day Years Used Date Smoking Tobacco: Never Passive Smoke Exposure: Never Smokeless Tobacco: Never Alcohol Use Standard Drinks/Week Comments Not Currently 13 (1 standard drink = 0.6 oz pure alcohol) one some days, 6 on weekends [facility] Utilities Answer Date Recorded In the past [address] [facility] [employer], gas, oil, or water company threatened to shut off services in your [...] your living situation today? 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 09/10/2015 amLODIPine (NORVASC) 10 mg tablet Take 1 tablet (10 mg total) by mouth daily. 90 tablet 3 02/11/[address] tablet Take 1 tablet by mouth daily. 11/26/2014 atorvastatin (LIPITOR) 10 mg tablet Take 1 tablet (10 mg total) by mouth daily. 90 tablet 3 02/04/2024 5 BD Ultra-Fine Mini Pen Needle 31 gauge x 3/16 needle USE TO INJECT INSULIN SIX TIMES PER DAY 600 each 3 05/16/2020 blood glucose ctl high,nml,low solutionIndicatio ns:Diabetes Mellitus Type 2 (HCC) Glucose control solution provides an easy way to ensure accurate blood glucose testing. 1 each 04/08/2018 blood-glucose meter miscIndications:D iabetes Mellitus Type 2 (HCC) Test as directed for diabetes control. 1 each 04/08/2018 gentamicin (GARAMYCIN) 0.1 % cream APPLY ONCE DAILY TO PD EXIT SITE 02/28/2024 insulin detemir U-100 (Levemir U-100 Insulin) 100 unit/mL injection Inject 25 Units under the skin at bedtime. Injected daily as directed. 22.5 mL 1 04/20/2024 5 insulin glargine (Lantus Solostar U-100 Insulin) 100 unit/mL (3 mL) injection INJECT 22 UNITS UNDER THE SKIN AT BEDTIME FOR 2 DAYS , THEN 24 UNITS FOR 2 DAYS , THEN 26 UNITS AT BEDTIME 15 mL 1 01/14/2020 isosorbide mononitrate (IMDUR) 60 mg 24 hr tablet Take 1 tablet (60 mg total) by mouth daily. 90 tablet 3 09/16/2023 4 lancets misc 4 (four) times a day. 08/26/2015 lancets misc 2 (two) times a day. 12/16/2015 metoprolol succinate (TOPROL-XL) 50 mg 24 hr tablet Take 1 tablet (50 mg total) by mouth daily. Do not crush or chew. 90 tablet 3 02/04/2024 5 Janet-Gene Rx 1-60-300 mg-mg-mcg tablet Take 1 tablet by mouth daily. 03/30/2024 UNABLE TO FIND 4 (four) times a day. 02/25/2015 calcitRIOL (RocaltroL) 0.5 mcg capsule Take 1 capsule by mouth daily. 03/11/2024 4 calcium carbonate (TUMS) 500 mg (200 mg calcium) chewable tablet Chew 1 tablet at bedtime. 4 documented as of this encounter Plan of Treatment Not on file documented as of this encounter Procedures Procedure Name Priority Date/Time Associated Diagnosis Comments HLA CLASS I/II COMBINED CPRA, SERUM Routine 07/22/2024 11:00 AM CDT HLA CLASS II SAB ANTIBODY SCREEN Routine 07/22/2024 11:00 AM CDT Chronic Kidney Disease Pretransplant Recipient Evaluation Exam HLA CLASS I SAB ANTIBODY SCREEN Routine 07/22/2024 11:00 AM CDT Chronic Kidney Disease Pretransplant Recipient Evaluation Exam documented in this encounter Results * HLA Class I/II Combined cPRA, Serum [...] published by UNOS/OPTN listed here: http://optn.transplant.hrsa.gov CLIA: [id number] CLIA Director Of Social Work: PROSPER NELSON,Ph.D. Combined cPRA Specificities NONE 07/27/2024 9:28 AM CDT DBB8 Blood 07/22/2024 11:0 0 AM CDT 07/23/2024 12:52 PM CDT Job Vincent APRN.N.P., M.S.N. LAB HLA ORD ERABLES Final Result [facility] [address] [place] [address], [facility] DBB8 [facility] [address] [place] [address] * HLA Class II SAB Antibody Screen (07/22/2024 11:00 AM CDT) Class II SAB Overall Result Positive Not Applicable 07/26/2024 7:54 PM CDT DBB8 Comment: A portion of the testing process was performed at [facility] site [id number] Class II SAB >=5000 MFI NONE 07/26/2024 7:54 PM CDT DBB8 Class II SAB [id number] MFI NONE 07/26/2024 7:54 PM CDT DBB8 Class II SAB 500-1999 MFI see below 07/26/2024 7:54 PM CDT DBB8 Comment: DRw:53 DP:1 14 SAB DRB1 Specificity NONE 07/26/2024 7:54 PM CDT DBB8 SAB [id number] Specificity see below 07/26/2024 7:54 PM CDT DBB8 Comment: 53(01:01)[853], 53(01:03)[641] Format: Serologic Eq.([id number] Mol. Allele)[Normalized MFI] NOTE: Data is displayed [...] ----ADDITIONAL INFORMATION---- Method: Luminex Flow Cytometry CLIA: [id number] CLIA Director Of Social Work: PROSPER NELSON,Ph.D. Blood (Blood, Venous) 07/22/2024 11:00 AM CDT 07/23/2024 12:52 PM CDT us Jovani Willis APRN, C.N.P., M.S.N. LAB HLA ORD ERABLES Final Result [facility] [address] [place] [address], [place] DBB8 [facility] [address] [place] [address] * HLA Class I SAB Antibody Screen (07/22/2024 11:00 AM CDT) [facility] Signature Class I SAB Overall Result Negative Not Applicable 07/26/2024 7:58 PM CDT DBB8 Comment: A portion of the testing process was performed at [facility] site [id number] Class I SAB >=5000 MFI NONE 07/26/2024 7:58 PM CDT DBB8 Class I SAB [id number] MFI NONE 07/26/2024 7:58 PM CDT DBB8 Class I SAB 500-1999 MFI NONE 07/26/2024 7:58 PM CDT DBB8 SAB A Specificity NONE 07/26/2024 7:58 PM CDT DBB8 SAB B Specificity NONE 07/26/2024 7:58 PM CDT DBB8 SAB C Specificity NONE 07/26/2024 7:58 PM CDT DBB8 Comment: ----ADDITIONAL INFORMATION---- Method: Luminex Flow Cytometry CLIA: [id number] CLIA Director Of Social Work: PROSPER NELSON,Ph.D. Blood (Blood, Venous) 07/22/2024 11:00 AM CDT 07/23/2024 12:52 PM CDT Pedro Luis Vincent APRNNRebaPReba, M.S.N. LAB HLA ORD ERABLES Final Result [facility] [address] [place] [address], [facility] DBB8 [facility] [address] [place] [address] documented in this encounter Visit Diagnoses Diagnosis Chronic Kidney Disease Pretransplant Recipient Evaluation Exam documented in this encounter Care Teams Supervisor Beet End Relationship Specialty Start Date End Date Elsewhere, Pcp PCP - General Internal Medicine 03/10/24 08/13/24 documented as of this encounter
--- OUTSIDE RECORDS SUMMARY | 2024-09-14 10:21 | XMS_ITS | Encounter Summary ---
Author Organization [facility] Address [address] [place] [address] Care Team Providers Care Game Technician Name Role Phone Elsewhere, Pcp Primary Care Provider Unavailabl e Encounter Details Date Type Department Care Team (Late st Contact Info) Description 06/26/2024 Orders Only Lamonte frost [facility] in [place], [place] [address] [place] [phone] Jovani Willis, DANIEL, C.N.P., M.S.N. [address] [place] [phone] Chronic Kidney Disease; Pretransplant Recipient Evaluation Exam Social History Tobacco Use Types Packs/Day Years Used Date Smoking Tobacco: Never Passive Smoke Exposure: Never Smokeless Tobacco: Never Alcohol Use Standard Drinks/Week Comments Not Currently 13 (1 standard drink = 0.6 oz pure alcohol) one some days, 6 on weekends [facility] Utilities Answer Date Recorded In the past 12 months has [employer], gas, oil, or water [employer] threatened to shut off services in your [...] your living situation today? 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 [employer] site [id number] Class II SAB >=5000 MFI NONE 07/26/2024 7:54 PM CDT DBB8 Class II SAB 3630-2853 MFI NONE 07/26/2024 7:54 PM CDT DBB8 Class II SAB 500-1999 MFI see below 07/26/2024 7:54 PM CDT DBB8 Comment: DRw:53 DP:1 14 SAB DRB1 Specificity NONE 07/26/2024 7:54 PM CDT DBB8 SAB [id number] Specificity see below 07/26/2024 7:54 PM CDT DBB8 Comment: 53(01:01)[853], 53(01:03)[641] Format: Serologic Eq.([id number] Mol. Allele)[Normalized MFI] NOTE: Data is displayed [...] ----ADDITIONAL INFORMATION---- Method: Luminex Flow Cytometry CLIA: [id number] CLIA Evs Manager: PROSPER NELSON,Ph.D. Blood (Blood, Venous) 07/22/2024 11:00 AM CDT 07/23/2024 12:52 PM CDT Jovani Willis APRN C.N.P., M.S.N. LAB HLA ORD ERABLES Final Result [facility] [address] [place] [address], [facility] DBB8 [facility] [address] [place] [address] * HLA Class I SAB Antibody Screen (07/22/2024 11:00 AM CDT) [facility] Signature Class I SAB Overall Result Negative Not Applicable 07/26/2024 7:58 PM CDT DBB8 Comment: A portion of the testing process was performed at [facility] site [id number] Class I SAB >=5000 MFI NONE 07/26/2024 7:58 PM CDT DBB8 Class I SAB 5637-1430 MFI NONE 07/26/2024 7:58 PM CDT DBB8 Class I SAB -1998 MFI NONE 07/26/2024 7:58 PM CDT DBB8 SAB A Specificity NONE 07/26/2024 7:58 PM CDT DBB8 SAB B Specificity NONE 07/26/2024 7:58 PM CDT DBB8 SAB C Specificity NONE 07/26/2024 7:58 PM CDT DBB8 Comment: ----ADDITIONAL INFORMATION---- Method: Luminex Flow Cytometry CLIA: [id number] CLIA Evs Manager: PROSPER NELSON,Ph.D. Blood (Blood, Venous) 07/22/2024 11:00 AM CDT 07/23/2024 12:52 PM CDT Job Vincent APRN.N.P., M.S.N. LAB HLA ORD ERABLES Final Result [facility] [address] [place] [address], [facility] DBB8 [facility] [address] [place] [address] documented in this encounter Visit Diagnoses Diagnosis Chronic Kidney Disease Pretransplant Recipient Evaluation Exam documented in this encounter Care Teams Game Technician Relationship Specialty Start Date End Date Elsewhere, Pcp PCP - General Internal Medicine 03/10/24 08/13/24 documented as of this encounter
--- OUTSIDE RECORDS SUMMARY | 2024-09-14 10:21 | XMS_ITS | Encounter Summary ---
Author Organization [facility] Address [address] [place] [address] Care Team Providers Care Controller Mechanic Name Role Phone None Reported, Pcp Primary Care Provider Unavail able Encounter Details Date Type Department Care Team (Latest Contact Info) Description 08/26/2024 1:19 PM FINANCIAL SYSTEMS ADMINISTRATOR - 08/26/2024 11:59 PM FINANCIAL SYSTEMS ADMINISTRATOR Hospital Encounter Department of Laboratory Medicine and Pathology, [facility] in [place], [place] [address] [place] [phone] Jovani iWllis, DANIEL, C.N.P., M.S.N. [address] [place] [phone] Chronic Kidney Disease; Pretransplant Recipient Evaluation Exam Discharge Disposition: Home or Self Care Social History Tobacco Use Types Packs/Day Years Used Date Smoking Tobacco: Never Passive Smoke Exposure: Never Smokeless Tobacco: Never Alcohol Use Standard Drinks/Week Comments Not Currently 13 (1 standard drink = 0.6 oz pure alcohol) one some days, 6 on weekends [facility] Utilities Answer Date Recorded In the past 12 months has [employer], gas, oil, or water company threatened to shut off services in your home? Yes 04/16/2024 PHQ-2 Answer Date Recorded PHQ-2 Score 1 04/16/2024 Exercise Vital Sign Answer Date Recorde d On average, how many days pe r week do you engage in moderate to strenuous exercise (like a brisk walk)? Patient declined 07 /08/2024 On average, how many minutes do you [...] your living situation today? 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 03/30/2024 sevelamer carbonate (Renvela) 800 mg tablet Take 2 tablets (1,600 mg total) by mouth 3 (three) times a day with meals. 540 tablet 3 08/04/2024 5 UNABLE TO FIND 4 (four) times a day. 02/25/2015 documented as of this encounter Plan of Treatment Pending Results Name Type Priority Associated Diagnoses Date /Time HLA Class II SAB Antibody Screen Lab HLA Routine Chronic Kidney Disease Pretransplant Recipient Evaluation Exam 09/09/2024 1:30 PM FINANCIAL SYSTEMS ADMINISTRATOR HLA Class I/II Combined cPRA, Serum Lab HLA Routine 09/09/2024 1:30 PM FINANCIAL SYSTEMS ADMINISTRATOR Scheduled Orders Name Type Priority Associated Diagnoses Orde r Schedule HLA Class II SAB Antibody Screen Lab HLA Routine Chronic Kidney Disease Pretransplant Recipient Evaluation Exam Once for 1 Occurrences starting 08/26/2024 until 08/26/2024 HLA Class I/II Combined cPRA, Serum Lab HLA Routine Routine lab collection (next collection) for 1 Occurrences starting 08/26/2025 until 08/26/2025 documented as of this encounter Procedures Procedure Name Priority Date/Time Associated Diagnosis Comments HLA CLASS I SAB ANTIBODY SCREEN Routine 09/09/2024 1:30 PM FINANCIAL SYSTEMS ADMINISTRATOR Chronic Kidney Disease Pretransplant Recipient Evaluation Exam documented in this encounter Results * HLA Class I SAB Antibody Screen (09/09/2024 1:30 PM FINANCIAL SYSTEMS ADMINISTRATOR) Class I SAB Overall Result Negative Not Applicable 09/14/2024 10:11 AM FINANCIAL SYSTEMS ADMINISTRATOR DBB8 Class I SAB >=5000 MFI NONE 09/14/2024 10:11 AM FINANCIAL SYSTEMS ADMINISTRATOR DBB8 Class I SAB 5744-4657 MFI NONE 09/14/2024 10:11 AM FINANCIAL SYSTEMS ADMINISTRATOR DBB8 Class I SAB 500-1999 MFI NONE 09/14/2024 10:11 AM FINANCIAL SYSTEMS ADMINISTRATOR DBB8 SAB A Specificity NONE 09/14/2024 10:11 AM FINANCIAL SYSTEMS ADMINISTRATOR DBB8 SAB B Specificity NONE 09/14/2024 10:11 AM FINANCIAL SYSTEMS ADMINISTRATOR DBB8 SAB C Specificity NONE 09/14/2024 10:11 AM FINANCIAL SYSTEMS ADMINISTRATOR DBB8 Comment: ----ADDITIONAL INFORMATION---- Method: Luminex Flow Cytometry CLIA: [id number] CLIA Physical Science Technician: PROSPER NELSON,Ph.D. Blood (Blood, Venous) 09/09/2024 1:30 PM FINANCIAL SYSTEMS ADMINISTRATOR 09/10/2024 11:43 AM FINANCIAL SYSTEMS ADMINISTRATOR Jovani Willis APRN, C.N.P., M.S.N. LAB HLA ORD ERABLES Final Result [facility] [address] [place], [place] [address] DBB8 [facility] [address] [place] [address] documented in this encounter Visit Diagnoses Diagnosis Chronic Kidney Disease Pretransplant Recipient Evaluation Exam documented in this encounter Care Teams Controller Mechanic Relationship Specialty Start Date End Date None Reported, Pcp PCP - General 08/14/24 documented as of this encounter
--- OUTSIDE RECORDS SUMMARY | 2024-09-14 10:21 | XMS_ITS | Clinical Summary ---
Author Organization [employer] [facility] Address [place], [place] [address] Care Team Providers Care Electronics Engineering Professor Name Role Phone Apurva Mckeon Primary Care Provider Allergies No known active allergies Medications aspirin chewable 81 mg chewable tabletIndications:m yocardial infarction prevention Take 1 tablet by mouth once daily. 11/26/19 15 Active insulin glargine (LANTUS SOLOSTAR PEN; BASAGLAR KWIKPEN) 100 unit/mL (3 mL) pen 28 units @ bedtime 04/08/20 18 Active metFORMIN (GLUCOPHAGE) 500 mg tablet Take 2 tabs morning and 1 with dinner x1 week, then increase 2 tabs BID. For diabetes. 04/08/20 18 Active HYDROcodone-acetami nophen, 5-325 mg, (NORCO) per tabletIndications:S /P laparoscopic cholecystectomy Take 1-2 tablets by mouth every 6 hours if needed for Pain Max acetaminophen dose: 4000 mg in 24 hrs. 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 Gender Identity Not on file Sexual Orientation Not on file Obstetrics History Last Filed Vital Signs Vital Sign Reading Time Taken Comments Blood Pressure 144/85 05/30/2018 5:00 PM CDT Pulse 68 05/30/2018 5:00 PM CDT Temperature 36.9 C (98.4 F) 05/30/2018 3:15 PM CDT Respiratory Rate 18 05/30/2018 5:00 PM CDT Oxygen Saturation 98% 05/30/2018 5:00 PM CDT Inhaled Oxygen Concentration - - Weight 68.9 kg (151 lb 12.8 oz) 018 11:41 AM CDT Height 159 cm (5' 2.6) 05/30/2018 11:4 1 AM CDT Body Mass Index 27.24 05/30/2018 11:41 AM CDT Plan of Treatment Not on file Insurance [place] [place] Advance Directives * Full Code (Latest Code Status on File) Date Activated Date Inactivated Comments 05/30/2018 11:01 AM 05/30/2018 7:49 PM Care Teams Electronics Engineering Professor Relationship Specialty Start Date End Date Apurva Mckeon PA PCP - General Physician Power Generation Technician 05/29/18
--- OUTSIDE RECORDS SUMMARY | 2024-09-14 10:21 | XMS_ITS | Encounter Summary ---
Author Organization [facility] Address [address] [place] [address] Care Team Providers Care Tugger Operator Name Role Phone None Reported, Pcp Primary Care Provider Unavail able Encounter Details Date Type Department Care Team (Late st Contact Info) Description 08/24/2024 Orders Only Lamonte frost [facility] in [place], [place] [address] [place] [phone] Jovani Willis, DANIEL, C.N.P., M.S.N. [address] [place] [phone] Chronic Kidney Disease; Pretransplant Recipient Evaluation Exam Social History Tobacco Use Types Packs/Day Years Used Date Smoking Tobacco: Never Passive Smoke Exposure: Never Smokeless Tobacco: Never Alcohol Use Standard Drinks/Week Comments Not Currently 13 (1 standard drink = 0.6 oz pure alcohol) one some days, 6 on weekends [facility] Utilities Answer Date Recorded In the past 12 months has [employer], gas, oil, or water [employer] now [employer] threatened to shut off services in your [...] your living situation today? 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 Not on file Not on file documented as of this encounter Plan of Treatment Pending Results Name Type Priority Associated Diagnoses Date /Time HLA Class II SAB Antibody Screen Lab HLA Routine Chronic Kidney Disease Pretransplant Recipient Evaluation Exam 09/09/2024 1:30 PM LABORER POLE CREW Scheduled Orders Name Type Priority Associated Diagnoses Orde r Schedule HLA Class II SAB Antibody Screen Lab HLA Routine Chronic Kidney Disease Pretransplant Recipient Evaluation Exam Expected: 08/24/2024 (Approximate), Expires: 11/24/2025 documented as of this encounter Results * HLA Class I SAB Antibody Screen (09/09/2024 1:30 PM LABORER POLE CREW) Class I SAB Overall Result Negative Not Applicable 09/14/2024 10:11 AM LABORER POLE CREW DBB8 Class I SAB >=5000 MFI NONE 09/14/2024 10:11 AM LABORER POLE CREW DBB8 Class I SAB 8120-3166 MFI NONE 09/14/2024 10:11 AM LABORER POLE CREW DBB8 Class I SAB 500-1999 MFI NONE 09/14/2024 10:11 AM LABORER POLE CREW DBB8 SAB A Specificity NONE 09/14/2024 10:11 AM LABORER POLE CREW DBB8 SAB B Specificity NONE 09/14/2024 10:11 AM LABORER POLE CREW DBB8 SAB C Specificity NONE 09/14/2024 10:11 AM LABORER POLE CREW DBB8 Comment: ----ADDITIONAL INFORMATION---- Method: Luminex Flow Cytometry CLIA: [id number] CLIA Email Marketing Specialist: PROSPER NELSON,Ph.D. Blood (Blood, Venous) 09/09/2024 1:30 PM LABORER POLE CREW 09/10/2024 11:43 AM LABORER POLE CREW Jovani Willis APRN C.N.P., M.S.N. LAB HLA ORD ERABLES Final Result Performing Organization Address City/State/[facility] Co de Phone Number [facility] [address] DBB8 [facility] [address] [place] [address] documented in this encounter Visit Diagnoses Diagnosis Chronic Kidney Disease Pretransplant Recipient Evaluation Exam documented in this encounter Care Teams Tugger Operator Relationship Specialty Start Date End Date None Reported, Pcp PCP - General 08/14/24 documented as of this encounter
--- OUTSIDE RECORDS SUMMARY | 2024-09-14 10:21 | XMS_ITS | Encounter Summary ---
Author Organization [facility] Address [address] [place] [address] Care Team Providers Care Key Account Manager Name Role Phone Elsewhere, Pcp Primary Care Provider Unavailabl e Encounter Details Date Type Department Care Team ([facility] st Contact Info) Description 08/04/2024 Orders Only Division of Nephrology and Hypertension in [place], [place] [address] [place] [phone] Mahesh Perla Jr., D.O. [address] [place] [address] Social History Tobacco Use Types Packs/Day Years Used Date Smoking Tobacco: Never Passive Smoke Exposure: Never Smokeless Tobacco: Never Alcohol Use Standard Drinks/Week Comments Not Currently 13 (1 standard drink = 0.6 oz pure alcohol) one some days, 6 on weekends [facility] Utilities Answer Date Recorded In the past 12 months has [employer], gas, oil, or water [employer] threatened to shut off services in your [...] your living situation today? 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
--- OUTSIDE RECORDS SUMMARY | 2024-09-14 10:21 | XMS_ITS ---
Author Organization [facility] Address [address] [place] [id number] Care Team Providers Care Corporate Counsel Name Role Phone None Reported, Pcp Primary Care Provider Unavail able Transplant Episode Kidney, Pancreas Candidate [facility] ([place], [place]) - [facility] Center waitlisted on 04/16/2024 Marked as Active on 04/16/2024 Kidney, Pancreas CoordinatorTanya Sahu R.N., C.C.T.C. 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 Kidney, Pancreas Coordinator [phone] N/A [email or web address] Elenita Villanueva M.D. Transplant Berry Planter [phone] [email or web address] [email or web address] Martin Wheeler M.D. Transplant Surgeon [phone] [email or web address] Mahesh Perla Jr., D.O. Referring Provider [phone] [email or web address] Adriana [email or web address]. Transplant Berry Planter [phone] [email or web address] Pre-Transplant Referred: 08/27/2023 Evaluation began: 12/09/2023 Committee: 03/04/2024 Center waitlisted: 04/16/2024 Appointments (08/15/2024 - 10/15/2024) When With Visit Type Description 08/18/2024 PTE Finding a Living Kidney [facility] Educational Visit No Show
== END 2024-09-14 10:10 | disposition home or self-care (01) ==
PROVIDERS: PCP Family Medicine; Visit Provider Family Medicine
DX: E78.00 Pure hypercholesterolemia, unspecified (principal); I10 Essential (primary) hypertension; D64.9 Anemia, unspecified; E13.9 Other specified diabetes mellitus without complications; N40.0 Benign prostatic hyperplasia without lower urinary tract symptoms; Z12.5 Encounter for screening for malignant neoplasm of prostate
CPT/HCPCS: 80061; 80076; G0103

== ENCOUNTER 2025-09-13 11:18 | Outpatient (CLI) | payer MEDICARE, SELFPAY | END 2025-09-13 11:19 | disposition home or self-care (01) | PROVIDERS: PCP Family Medicine; Visit Provider Family Medicine | DX: Z00.00 Encounter for general adult medical examination without abnormal findings (principal); E78.00 Pure hypercholesterolemia, unspecified; N18.5 Chronic kidney disease, stage 5; Z12.5 Encounter for screening for malignant neoplasm of prostate | CPT/HCPCS: 80061; 80076; G0103 ==